=== PATIENT | male | born 1990 | race Caucasian/White ===

== ENCOUNTER 2020-02-08 14:16 | Emergency (ER) | payer MEDICAID ==
[~2020-02-08] VITALS: Ht 177.8 cm; Wt 78.0 kg
[~2020-02-08 14:16] MED LIST: DIVA500T2 PO; ESCI5TAB7 PO
[2020-02-08] MEDS ORDERED: SODIUM CHLORIDE FLUSH 10ML SYR IVF ONE (15:00)
[2020-02-08 15:10] LABS: BASOPHILS # (AUTO) 0.01 x10^3/uL (0-0.1); BASOPHILS % (AUTO) 0 % (0-1); EOSINOPHILS # (AUTO) 0.14 x10^3/uL (0-0.4); EOSINOPHILS % (AUTO) 2 % (1-7); LYMPHOCYTES # (AUTO) 0.84 x10^3/uL (1-3.4); LYMPHOCYTES % (AUTO) 9 % (22-44); MD NO; MEAN CORPUSCULAR HEMOGLOBIN 28.6 pg (27.5-34.5); MEAN CORPUSCULAR HGB CONC 31.3 g/dL (33.2-36.2); MEAN CORPUSCULAR VOLUME 91.3 fL (81-97); MEAN PLATELET VOLUME 10.3 fL (7.4-10.4); MONOCYTES # (AUTO) 0.48 x10^3/uL (0.2-0.8); MONOCYTES % (AUTO) 5 % (2-9); NEUTROPHILS # (AUTO) 8.11 x10^3/uL (1.8-6.8); NEUTROPHILS % (AUTO) 85 % (42-75); PLATELET COUNT 229 x10^3/uL (130-400); RED BLOOD COUNT 5.16 x10^6/uL (4.38-5.82); RED CELL DISTRIBUTION WIDTH 13.5 % (9.4-14.8)
[2020-02-08 15:17] LABS: ALANINE AMINOTRANSFERASE 19 U/L (12-78); ALBUMIN 3.6 g/dL (3.4-5.0); ANION GAP 5 mmol/L (5-15); CHLORIDE 111 mmol/L (98-107); CREATININE 1.07 mg/dL (0.7-1.3)
[2020-02-08 15:44] LABS: ALKALINE PHOSPHATASE 79 U/L (45-117); BILIRUBIN,TOTAL 0.2 mg/dL (0.2-1.0); TOTAL PROTEIN 7.4 g/dL (6.4-8.2)
[2020-02-08 16:16] VITALS: BP 116/67
== END 2020-02-08 18:22 | disposition home or self-care (01) ==
LOC: ED 16:23
DX: S05.11XA Contusion of eyeball and orbital tissues, right eye, initial encounter (principal); G40.309 Generalized idiopathic epilepsy and epileptic syndromes, not intractable, without status epilepticus; R55 Syncope and collapse; R94.31 Abnormal electrocardiogram [ECG] [EKG]; W18.30XA Fall on same level, unspecified, initial encounter; Y93.89 Activity, other specified; Y92.89 Other specified places as the place of occurrence of the external cause; Y99.8 Other external cause status
CPT/HCPCS: 36415; 70450; 80053; 80164; 85025; 93005; 99285

== ENCOUNTER 2020-11-25 01:14 | Emergency (ER) | payer MEDICAID, OTHER ==
[~2020-11-25] VITALS: Ht 180.3 cm; Wt 69.0 kg
--- NOTE | 2020-11-25 01:18 | NUR ---
INITIAL PT CONTACT. PT [facility] FROM [facility] FOR POSSIBLE SEIZURE. HX OF SEIZURES. PT STATES THAT HE "FELT LIKE I WAS GOING TO HAVE A SEIZURE AND THEN WOKE UP." PER PT AND [facility] STAFF PT HAS NOT HAD SEIZURE MEDS IN APPROX 3 DAYS, "IT IS A SPECIAL MEDICATION AND THEY HAD TO ORDER IT". EMS STATES THAT HE WAS A&OX2 UPON THEIR ARRIVAL TO FACILITY AND POST ICTAL. PT NOW A&OX4. PT DENIES ANY ORAL TRAUMA, INCONTINENCE OR OTHER COMPLAINTS AT THIS TIME. PT MOVED FROM [facility] TO [facility]. PT PLACED ON CONTINUOUS MONITORING. PT PROVIDED URINAL PER REQUEST. NO ADDITIONAL NEEDS AT THIS TIME. CALL LIGHT IN REACH. LAW ENFORCEMENT AT BEDSIDE, PT IS IN [facility].
[2020-11-25] MEDS ORDERED: IBUP-1902 PO (01:39)
[2020-11-25] MEDS ORDERED: LOPE2CAP PO (01:39)
[2020-11-25] MEDS ORDERED: FOLI20CA PO (01:39)
[2020-11-25] MEDS ORDERED: ESLI600T PO (01:39)
[2020-11-25] MEDS ORDERED: CALC500T29 PO (01:39)
[2020-11-25] MEDS ORDERED: DICY20TA4 PO (01:39)
[2020-11-25] MEDS ORDERED: ONDA4TAB7 PO (01:41)
[2020-11-25] MEDS ORDERED: THIA500T PO (01:41)
[2020-11-25] MEDS ORDERED: VENL75TA2 PO (01:43)
[2020-11-25] MEDS ORDERED: VENL37.511 PO (01:43)
--- NOTE | 2020-11-25 01:56 | NUR ---
PT STATES HE HAS A MILD ALLERGY/ADVERSE REACTION TO KEPPRA, "I JUST GET LITTLE BUMPS ON MY FACE, I USED TO TAKE IT ALL THE TIME BUT STOPPED WHEN THEY THOUGHT IT WAS THE KEPPRA". ERP DR. CALIX AWARE, ERP WANTS TO CONTINUE RX AND INFUSE KEPPRA. WILL MONITOR PT CLOSELY. PT STATES "I WANT TO TAKE THE MEDICATION IF IT WILL HELP MY SEIZURES, I CAN DEAL WITH THE BUMPS, I JUST WANT IT TO HELP".
[2020-11-25] MEDS ORDERED: LEVETIRACETAM 1,000 MG in SODIUM CHLORIDE 0.9% 100 ML IV ONE (02:00)
[2020-11-25 02:03] LABS: BASOPHILS % (AUTO) 1 % (0-1); EOSINOPHILS % (AUTO) 3 % (1-7); LYMPHOCYTES % (AUTO) 44 % (22-44); MEAN CORPUSCULAR HEMOGLOBIN 29.5 pg (27.5-34.5); MEAN CORPUSCULAR HGB CONC 32.6 g/dL (33.2-36.2); MEAN PLATELET VOLUME 11.9 fL (7.4-10.4); MONOCYTES % (AUTO) 8 % (2-9); NEUTROPHILS % (AUTO) 44 % (42-75); PLATELET COUNT 177 x10^3/uL (130-400); RED CELL DISTRIBUTION WIDTH 13.9 % (9.4-14.8)
[2020-11-25 02:04] LABS: MD NO
[2020-11-25 02:14] LABS: ALBUMIN 4.2 g/dL (3.4-5.0); ANION GAP 6 mmol/L (5-15); CALCIUM 9.5 mg/dL (8.5-10.1); CHLORIDE 111 mmol/L (98-107); CREATININE 1.12 mg/dL (0.7-1.3)
--- NOTE | 2020-11-25 02:40 | NUR ---
KEPPRA INFUSION COMPLETE PER EMAR. PT TOLERATED WELL. NO SIGNS OF ALLERGIC REACTION OR ALLERY NOTED. PT STATES "I FEEL FINE. I'M JUST GLAD IT'S GOING TO HELP WITH THESE SEIZURES". ERP AWARE, WILL EVAL AGAIN. VITALS SIGNS REMAIN STABLE, NADN.
--- NOTE | 2020-11-25 02:43 | NUR ---
ERP AT BEDSIDE FOR RE-EVAL
[2020-11-25 02:50] VITALS: BP 140/80
--- NOTE | 2020-11-25 03:00 | NUR ---
Patient given discharge instructions and they have confirmed that they understand the instructions. Patient ambulatory with steady gait upon d/c with law enforcement back to care home.
== END 2020-11-25 03:04 | disposition home or self-care (01) ==
LOC: ED 01:29
DX: R56.9 Unspecified convulsions (principal); R55 Syncope and collapse; F17.210 Nicotine dependence, cigarettes, uncomplicated
CPT/HCPCS: 36415; 80048; 82040; 85025; 93005; 96365; 99284; 99406; J1953